=== PATIENT | male | born 1990 | race African-American/Black ===

== ENCOUNTER 2017-04-23 10:03 | Emergency (ER) | payer SELFPAY ==
[~2017-04-23] VITALS: Ht 180.3 cm; Wt 82.0 kg
[2017-04-23 10:42] VITALS: BP 119/76
== END 2017-04-23 15:16 | disposition left against medical advice (07) ==
LOC: ER 10:57
DX: Z53.21 Procedure and treatment not carried out due to patient leaving prior to being seen by health care provider (principal)